=== PATIENT | female | born 1955 | race Caucasian/White ===

== ENCOUNTER 2020-12-22 12:27 | Emergency (ER) | payer OTHER ==
[~2020-12-22] VITALS: Ht 147.3 cm; Wt 59.0 kg
--- NOTE | 2020-12-22 12:51 | NUR ---
PT WAS EVALUATED BY DR THORNE. PT WAS D/C'd TO HOME. D/C INSTRUCTIONS GIVEN TO THE PT BY DR THORNE.
[2020-12-22 12:52] VITALS: BP 131/72
== END 2020-12-22 13:08 | disposition home or self-care (01) ==
LOC: ER 12:57
DX: S93.402A Sprain of unspecified ligament of left ankle, initial encounter (principal); S33.8XXA Sprain of other parts of lumbar spine and pelvis, initial encounter; W01.0XXA Fall on same level from slipping, tripping and stumbling without subsequent striking against object, initial encounter; Y92.89 Other specified places as the place of occurrence of the external cause; H50.9 Unspecified strabismus
CPT/HCPCS: A4663